=== PATIENT | female | born 1960 | race Caucasian/White ===

== ENCOUNTER 2022-06-17 08:51 | Day surgery (SDC) | payer OTHER ==
[~2022-06-17] VITALS: Ht 167.6 cm; Wt 99.8 kg
[2022-06-17] MEDS ORDERED: LIDOCAINE 2% 100 MG/5 ML UJET TP ONE (09:27)
[2022-06-17] MEDS ORDERED: fentaNYL citrate 0.05 MG/ML VIAL ONE (09:27)
[2022-06-17] MEDS ORDERED: fentaNYL citrate 0.05 MG/ML VIAL IVP ONE (10:00)
== END 2022-06-17 10:50 | disposition home or self-care (01) ==
LOC: MDS 08:51 → MMU 08:52 → MDS 10:50
PROVIDERS: ATTEND Internal Medicine Gastroenterology
DX: K62.5 Hemorrhage of anus and rectum (principal); K62.1 Rectal polyp; K57.30 Diverticulosis of large intestine without perforation or abscess without bleeding; K64.9 Unspecified hemorrhoids; F32.A Depression, unspecified; Z90.710 Acquired absence of both cervix and uterus; E78.5 Hyperlipidemia, unspecified; G43.909 Migraine, unspecified, not intractable, without status migrainosus; E66.9 Obesity, unspecified; K21.9 Gastro-esophageal reflux disease without esophagitis; Z90.49 Acquired absence of other specified parts of digestive tract; Z98.890 Other specified postprocedural states; Z68.35 Body mass index [BMI] 35.0-35.9, adult
CPT/HCPCS: 45385; J3010